=== PATIENT | male | born 1970 | race Caucasian/White ===

== ENCOUNTER 2017-06-01 03:27 | Emergency (ER) | payer OTHER ==
[~2017-06-01] VITALS: Ht 160 cm; Wt 73.6 kg
[2017-06-01 03:34] VITALS: Ht 160 cm; Wt 73.6 kg
[2017-06-01] MEDS ORDERED: LORAZEPAM 2 MG INJ IV STA (03:41)
[2017-06-01] MEDS ORDERED: SOD CHLORIDE 0.9% 1,000 ML IV STA (03:41)
[2017-06-01 04:30] LABS: BASOPHIL # 0.1 10^3/ul (0.0-0.1); BASOPHILS % 0.8 % (0.0-2.0); EOSINOPHILS % 0.1 % (0.0-7.0); HEMATOCRIT 43.9 % (42.0-52.0); HEMOGLOBIN 15.1 g/dl (14.0-18.0); LYMPHOCYTES # 1.7 10^3/ul (0.8-2.9); MEAN CORPUSCULAR HEMOGLOBIN 30.3 pg (29.0-33.0); MEAN CORPUSCULAR HGB CONC 34.4 g/dl (32.0-37.0); MEAN CORPUSCULAR VOLUME 88.2 fl (82.0-101.0); MEAN PLATELET VOLUME 8.8 fl (7.4-10.4); MONOCYTE # 0.5 10^3/ul (0.3-0.9); MONOCYTES % 4.6 % (0.0-11.0); NEUTROPHIL # 8.9 10^3/ul (1.6-7.5); NEUTROPHILS % 78.2 % (39.0-77.0); PLATELET COUNT 310 10^3/UL (140-415); RED BLOOD COUNT 4.98 10^6/ul (4.70-6.10); WHITE BLOOD COUNT 11.4 10^3/ul (4.8-10.8)
--- NOTE | 2017-06-01 04:43 | RADRPT ---
PROCEDURE: CHEST - 1 VIEW CLINICAL INDICATION: 46-year-old male with chest pain. TECHNIQUE: A single frontal AP supine portable view of the chest was performed. The images were r eviewed on a PACS workstation. COMPARISON: None. FINDINGS: There is a shallow inspiration accentuating the heart size. Accounting for this, the cardiomediastin al silhouette is within normal limits. There is mild bibasilar subsegmental atelectasis. There is n o evidence for an infiltrate. There is no evidence for congestive heart failure. There is no eviden ce for pneumothorax. The osseous structures are intact. IMPRESSION: Shallow inspiration with mild bibasilar system atelectasis. .David Saavedra MD, MD Date Time Electronically viewed and signed by .David Saavedra MD, on 06/01/2017 04:43 .M/
[2017-06-01 04:48] LABS: CALCIUM 9.1 mg/dl (8.4-10.2); CREATININE 0.84 mg/dl (0.61-1.24); POTASSIUM 3.9 mmol/L (3.5-5.1)
[2017-06-01 04:59] LABS: TROPONIN-I 0.036 ng/ml (0.00-0.12)
--- NOTE | 2017-06-01 05:20 | ERD ---
ER Documentation Chief Complaint Date/Time DATE: 06/01/17 TIME: 05:16 Chief Complaint LUIS MANUEL RA39 c/o dizziness & NV after using crystal meth HPI Is a 46-year-old male here with complaints of dizziness nausea vomiting after using crystal meth. Denies any fevers or chills. Denies any nausea vomiting. Admits to using crystal meth. Denies any chest pain ROS All systems reviewed and are negative except as per history of present illness. Allergies Allergies: Coded Allergies: No Known Allergy (Unverified , 06/01/17) PMhx/Soc Medical and Surgical Hx: pt denies Medical Hx, pt denies Surgical Hx History of Surgery: No Anesthesia Reaction: No Hx Neurological Disorder: No Hx Respiratory Disorders: No Hx Cardiac Disorders: No Hx Psychiatric Problems: No Hx Miscellaneous Medical Probl: No Hx Alcohol Use: Yes Hx Substance Use: Yes Hx Tobacco Use: Yes (SMOKES CIGARETTES SOMETIMES) Smoking Status: Current some day smoker Physical Exam Vitals Vital Signs Date Time Temp Pulse Resp B/P Pulse Ox O2 Delivery O2 Flow Rate FiO2 06/01/17 04:05 98.5 88 22 169/99 98 Room Air 06/01/17 03:34 98.5 97 18 175/97 98 Physical Exam Const: [] Head: Atraumatic Eyes: Normal Conjunctiva ENT: Normal External Ears, Nose and Mouth. Neck: Full range of motion..~ No meningismus. Resp: Clear to auscultation bilaterally Cardio: Regular rate and rhythm, no murmurs Abd: Soft, non tender, non distended. Normal bowel sounds Skin: No petechiae or rashes Back: No midline or flank tenderness Ext: No cyanosis, or edema Neur: Awake and alert Psych: Normal Mood and Affect Result Diagram: 06/01/17 0405 06/01/17 0405 Results 24 hrs Laboratory Tests Test 06/01/17 04:05 White Blood Count 11.410^3/ul Red Blood Count 4.9810^6/ul Hemoglobin 15.1g/dl Hematocrit 43.9% Mean Corpuscular Volume 88.2fl Mean Corpuscular Hemoglobin 30.3pg Mean Corpuscular Hemoglobin Concent 34.4g/dl Red Cell Distribution Width 13.0% Platelet Count 33088^3/UL Mean Platelet Volume 8.8fl Neutrophils % 78.2% Lymphocytes % 15.0% Monocytes % 4.6% Eosinophils % 0.1% Basophils % 0.8% Nucleated Red Blood Cells % 0.0/100WBC Neutrophils # 8.910^3/ul Lymphocytes # 1.710^3/ul Monocytes # 0.510^3/ul Eosinophils # 0.010^3/ul Basophils # 0.110^3/ul Nucleated Red Blood Cells # 0.010^3/ul Sodium Level 142mmol/L Potassium Level 3.9mmol/L Chloride Level 105mmol/L Carbon Dioxide Level 21mmol/L Anion Gap 20 Blood Urea Nitrogen 10mg/dl Creatinine 0.84mg/dl Glucose Level 143mg/dl Calcium Level 9.1mg/dl Troponin I Pending Current Medications Medications (Trade) Dose Ordered Sig/Farhan Route PRN Reason Start Time Stop Time Status Last Admin Dose Admin Sodium Chloride (NS) 1,000 ml @ 1,000 mls/hr Q1H STAT IV 06/01/17 03:41 06/01/17 04:40 DC 06/01/17 04:28 Lorazepam (Ativan) 2 mg ONCE STAT IV 06/01/17 03:41 06/01/17 03:59 DC Procedures/MDM 1Thiadriana is a 46-year-old male who comes in with dizziness after using crystal meth use. He was advised to stop using crystal meth . Patient's thoracic symptoms have stabilized while in the department and are stable for outpatient follow up. Exam and work up not consistent w/ ischemia, arrhythmia, PE or dissection. EKG: Rate/Rhythm: [Normal Sinus Rhythm] QRS, ST, T-waves: [No changes consistent w/ acute ischemia] Impression: [No evidence of ischemia or arrhythmia] Chest X-ray 1V Interpreted by me: Soft Tissue: No acute abnormalities Bones: No acute abnormalities Mediastinum/Cardiac Silhouette/Lungs: [No acute abnormalities] Departure Diagnosis: Primary Impression: Dizziness Condition: Stable ANSLEY PENG Jun 01, 2017 05:20
[2017-06-01 06:02] VITALS: BP 164/95; PULSE 109; RESP 17; TEMP 98.5
== END 2017-06-01 06:12 | disposition home or self-care (01) ==
LOC: E/R 03:27
DX: R42 Dizziness and giddiness (principal); R11.2 Nausea with vomiting, unspecified; F17.210 Nicotine dependence, cigarettes, uncomplicated
CPT/HCPCS: 36415; 71010; 80048; 84484; 85025; 93005; J7030; Z7502

== ENCOUNTER 2017-06-10 18:30 | Emergency (ER) | payer OTHER ==
[~2017-06-10] VITALS: Ht 170.2 cm; Wt 79.5 kg
[2017-06-10 18:49] VITALS: Ht 170.2 cm; Wt 79.5 kg
--- NOTE | 2017-06-10 19:35 | ERD ---
ER Documentation Chief Complaint Date/Time DATE: 06/10/17 TIME: 19:33 Chief Complaint Pt seen thursday for s/s of dizziness denies vomiting at this time HPI This 46-year-old male patient presents to emergency department today with complaint of subjective vertigo x 10 days symptoms better today than yesterday. pt has been seen bu PMD dx with vertigo on meclizine. pt reports intermitted relief of symptoms. pt denies CP, SOB, reports palpation and dizziness ROS All systems reviewed and are negative except as per history of present illness. Allergies Allergies: Coded Allergies: No Known Allergy (Unverified , 06/01/17) PMhx/Soc History of Surgery: No Anesthesia Reaction: No Hx Neurological Disorder: No Hx Respiratory Disorders: No Hx Cardiac Disorders: No Hx Psychiatric Problems: No Hx Miscellaneous Medical Probl: No Hx Alcohol Use: Yes Hx Substance Use: Yes Hx Tobacco Use: Yes (SMOKES CIGARETTES SOMETIMES) Physical Exam Vitals Vital Signs Date Time Temp Pulse Resp B/P Pulse Ox O2 Delivery O2 Flow Rate FiO2 06/10/17 18:49 99.0 71 16 183/93 98 Vitals stable, triage notes reviewed Physical Exam Const: Well-nourished, well-appearing, well-hydrated 46-year-old male patient no acute distress Head: Atraumatic Eyes: Normal Conjunctiva, PERRLA, EOMI ENT: Tympanic membrane translucent, no air-fluid level, positive light reflex , no mastoid tenderness, nasal mucosa moist, turbinates +1, pharynx pink, uvula midline rancid falls with pronation, no shift Neck: Full range of motion..~ No meningismus. Resp: Clear to auscultation bilaterally, no rales wheezes or rhonchi Cardio: S1-S2, no S3-S4 regular rate and rhythm, no murmurs Abd: Skin: Back: Ext: Neur: Awake and alert Psych: Normal Mood and Affect Result Diagram: 06/10/17199906/10/171999 Results 24 hrs Laboratory Tests Test 06/10/17 20:00 White Blood Count 9.510^3/ul Red Blood Count 5.1110^6/ul Hemoglobin 15.5g/dl Hematocrit 45.3% Mean Corpuscular Volume 88.6fl Mean Corpuscular Hemoglobin 30.3pg Mean Corpuscular Hemoglobin Concent 34.2g/dl Red Cell Distribution Width 11.9% Platelet Count 13561^3/UL Mean Platelet Volume 8.8fl Neutrophils % 58.1% Lymphocytes % 31.6% Monocytes % 7.2% Eosinophils % 2.0% Basophils % 0.9% Nucleated Red Blood Cells % 0.0/100WBC Neutrophils # 5.510^3/ul Lymphocytes # 3.010^3/ul Monocytes # 0.710^3/ul Eosinophils # 0.210^3/ul Basophils # 0.110^3/ul Nucleated Red Blood Cells # 0.010^3/ul Sodium Level 141mmol/L Potassium Level 4.0mmol/L Chloride Level 106mmol/L Carbon Dioxide Level 26mmol/L Anion Gap 13 Blood Urea Nitrogen 12mg/dl Creatinine 1.05mg/dl Glucose Level 108mg/dl Calcium Level 9.2mg/dl Total Bilirubin 0.0mg/dl Direct Bilirubin 0.00mg/dl Indirect Bilirubin 0.0mg/dl Aspartate Amino Transf (AST/SGOT) 55IU/L Alanine Aminotransferase (ALT/SGPT) 106IU/L Alkaline Phosphatase 116IU/L Troponin I 0.013ng/ml B-Type Natriuretic Peptide 19PG/ML Total Protein 7.9g/dl Albumin 4.4g/dl Globulin 3.50g/dl Albumin/Globulin Ratio 1.25 Current Medications Medications (Trade) Dose Ordered Sig/Farhan Route PRN Reason Start Time Stop Time Status Last Admin Dose Admin Promethazine HCl (Phenergan) 25 mg ONCE ONCE PO 06/10/17 20:00 06/10/17 20:01 DC 06/10/17 20:44 Interpretation text CBC shows no evidence of hemorrhage or infection Chemistry shows no evidence of significant electrolyte abnormalities or renal insufficiency Liver function tests shows no evidence of acute biliary or hepatic dysfunction Cardiac biomarkers show no evidence of acute myocardial injury or coronary ischemia BNP shows no evidence of acute congestive heart failure, and or volume overload. Procedures/MDM EKG: Interpretation by supervising physician Dr. Cox Rate/Rhythm: Normal Sinus Rhythm ventricular rate of 73 bpm QRS, ST, T-waves: No changes consistent w/ acute ischemia Impression: No evidence of ischemia or arrhythmia This 46-year-old male patient presents to emergency department for evaluation of vertigo symptoms. Patient actually was seen and treated by his primary care physician and has been on meclizine. Patient reports symptoms worse yesterday, today. Patient reports that symptoms are exacerbated with position changes. Patient reports that it feels as if he is spinning at times he has an off balance feeling denies headache, nausea, vomiting, sweating, vision changes, blurred vision or vision loss. Patient denies any change in hearing or tinnitus denies numbness or tingling to extremities. Patient has no history of diabetes denies street drugs, alcohol. ECG normal sinus rhythm, emergency room evaluation includes diagnostic testing cardiac biomarkers without evidence of acute coronary syndromes, and Phenergan 25 mg with improvement of symptoms plan to discharge patient home on Phenergan. Instructed to follow-up with his primary care physician for referral to specialist. Return to emergency department for chest pain, shortness of breath, palpitations. Patient is stable with no new complaints during ER course, clinically there is no current evidence to suggest Mnire's disease, malignant otitis externa, cardiac arrhythmia, acute coronary syndromes or any other emergent condition appearing to require further evaluation or hospitalization. I feel the patient is stable for discharge at this time. I have discussed results, examination findings, the treatment plan with the patient and family present prior to discharge. Indications for emergent reevaluation, side effects of medication were also discussed. All questions were answered. Patient verbalizes understanding and agrees with plan of care. Departure Diagnosis: Primary Impression: Dizziness Patient Instructions: Benign Positional Vertigo, Dizziness (Vertigo) and Balance Problems: Ensuring Your Safety Additional Instructions: Thank you for for coming to [facility] for your care today. Please ask your nurse or provider if you have questions about your care today and do not leave until all your questions have been answered. Please use any medications given as directed and follow-up with your doctor (or the doctor you were referred to) in the next 2-3 days. If you do not have a primary care doctor you may follow up at the [facility] (listed below). You may also use motrin and tylenol as needed for fever and/or pain unless instructed otherwise by your provider or nurse. Indications for more urgent follow-up have been discussed, but you may return to the Emergency Department at ANY time for any worrisome or worsening symptoms. If you have abdominal pain, please know that no test or exam you received is perfect and you should follow up within 8 hours for continued pain. If you had any imaging studies today, such as an X-Ray or CT Scan, these studies will be reviewed later by a radiologist. You will be called if there are important findings that were not identified today, so make sure the contact information you provided at registration is correct. If you received any narcotic pain control medicine today, such as Vicodin, Morphine or Dilaudid, your coordination and judgment may be affected for a number of hours. Please do not drive or operate heavy machinery, and you may want someone to assist you at home. If you were given a prescription for narcotic medication, be aware that it is very addictive- use sparingly and only if necessary. RODERICK QUINN Jun 10, 2017 19:35
[2017-06-10] MEDS ORDERED: PROMETHAZINE 25 MG TAB PO ONE (20:00)
[2017-06-10 21:09] LABS: BASOPHIL # 0.1 10^3/ul (0.0-0.1); BASOPHILS % 0.9 % (0.0-2.0); EOSINOPHILS # 0.2 10^3/ul (0.0-0.5); HEMATOCRIT 45.3 % (42.0-52.0); HEMOGLOBIN 15.5 g/dl (14.0-18.0); LYMPHOCYTES % 31.6 % (15.0-51.0); MEAN CORPUSCULAR HEMOGLOBIN 30.3 pg (29.0-33.0); MEAN CORPUSCULAR HGB CONC 34.2 g/dl (32.0-37.0); MEAN CORPUSCULAR VOLUME 88.6 fl (82.0-101.0); MEAN PLATELET VOLUME 8.8 fl (7.4-10.4); MONOCYTE # 0.7 10^3/ul (0.3-0.9); MONOCYTES % 7.2 % (0.0-11.0); NEUTROPHIL # 5.5 10^3/ul (1.6-7.5); NEUTROPHILS % 58.1 % (39.0-77.0); PLATELET COUNT 315 10^3/UL (140-415); RED BLOOD COUNT 5.11 10^6/ul (4.70-6.10); RED CELL DISTRIBUTION WIDTH 11.9 % (11.5-14.5); WHITE BLOOD COUNT 9.5 10^3/ul (4.8-10.8)
[2017-06-10 21:26] LABS: ALBUMIN 4.4 g/dl (3.3-4.9); ALBUMIN/GLOBULIN RATIO 1.25; CALCIUM 9.2 mg/dl (8.4-10.2); CREATININE 1.05 mg/dl (0.61-1.24); TOTAL PROTEIN 7.9 g/dl (6.1-8.1)
[2017-06-10 21:38] LABS: TROPONIN-I 0.013 ng/ml (0.00-0.12)
[2017-06-10] MEDS ORDERED: PROM25TA14 PO (22:43)
[2017-06-10 23:16] VITALS: BP 172/80; PULSE 75; RESP 18; TEMP 98.3
== END 2017-06-10 23:17 | disposition home or self-care (01) ==
LOC: FTE 18:30
DX: R42 Dizziness and giddiness (principal); F17.210 Nicotine dependence, cigarettes, uncomplicated
CPT/HCPCS: 36415; 80053; 83880; 84484; 85025; 93005; Z7502; Z7610

== ENCOUNTER 2017-06-16 10:19 | Emergency (ER) | payer OTHER ==
[~2017-06-16] VITALS: Ht 160 cm; Wt 89.0 kg
[~2017-06-16 10:19] MED LIST: PROM25TA14 PO
[2017-06-16 10:22] VITALS: Ht 160 cm; Wt 89.0 kg
[2017-06-16] MEDS ORDERED: MECLIZINE 12.5 MG TAB PO ONE (11:30)
--- NOTE | 2017-06-16 12:55 | RADRPT ---
PROCEDURE: CT Brain without contrast. CLINICAL INDICATION: Dizziness and vertigo TECHNIQUE: CT scan of the brain was performed on a multidetector high-resolution CT scan. Axial im aging was obtained of the brain without contrast administration. Coronal and sagittal reformatted i mages were obtained from the axial source images. Standard CT scan of the head without contrast prot ocols were performed. The total exam CTDI equals 44.9 mGy and the total exam DLP equals 630.2 mGy-cm. One or more of the following dose reduction techniques were used: - Automated exposure control. - Adjustment of the mA and/or kV according to patient size. Use of iterative reconstruction technique. COMPARISON: None. FINDINGS: The ventricular system and peripheral CSF spaces are unremarkable. Negative for intracranial masses hemorrhages or midline shift. Silva-white matter junction is unremarkable. The bones of the calvarium are intact. The visualized paranasal sinuses and mastoids are unremarkable. IMPRESSION: No evidence of intracranial masses hemorrhages or midline shift. RPTAT:AAJJ Physician Radha Date Time Electronically viewed and signed by Physician Radha on 06/16/2017 12:55 BM/
--- NOTE | 2017-06-16 13:01 | RADRPT ---
PROCEDURE: CT Petrous Bone without Contrast CLINICAL INDICATION: Vertigo TECHNIQUE: The transaxial images were made through the petrous bones bilaterally although multi-sli ce scanner. Sagittal coronal re-formations were subsequently obtained. No intravenous contrast was administered. COMPARISON: None One or more of the following dose reduction techniques were used: - Automated exposure control. - Adjustment of the mA and/or kV according to patient size. - Use of iterative reconstruction technique. Radiation: The CTDIvol is 44.90 mGy and the DLP is 630.20 mGycm. FINDINGS: The external auditory canals appear unremarkable. Each scutum is sharply marginated intact. The mastoid air cells are well-aerated and there is no osseous destruction identified. The middle ear cavities are well-aerated and the middle ear ossicles appear unremarkable. The tegme n appears intact. The cochleas and semicircular canals appear unremarkable bilaterally. Each internal auditory canal appears unremarkable with no expansion, erosion, or mass identified. The visualized brain parenchyma appears unremarkable. No cerebellar pontine angle mass is identified . Mild mucoperiosteal thickening is seen within the maxillary sinuses. IMPRESSION: 1. Mild mucoperiosteal thickening involving the maxillary sinuses. 2. Unremarkable CT of the petrous bone. Physician Ani Date Time Electronically viewed and signed by Physician Ani on 06/16/2017 13:01 /
[2017-06-16] MEDS ORDERED: PRED20TA PO (13:04)
[2017-06-16] MEDS ORDERED: MECL-77 PO (13:04)
[2017-06-16] MEDS ORDERED: AZIT250T94 PO (13:04)
[2017-06-16 13:19] VITALS: BP 132/78; PULSE 72; RESP 19; TEMP 98.1
--- NOTE | 2017-06-17 18:15 | ERD ---
ER Documentation Chief Complaint Date/Time DATE: 06/17/17 TIME: 18:13 Chief Complaint HAS VERTIGO X 17 DAYS, ON MEDS HPI This 46-year-old male presents with reproducible dizziness or vertigo for the last 2.5 weeks. He is taken promethazine and had minimal relief. Denies any history of trauma, weakness, vomiting, visual changes. Dizziness is reproducible by lying on his left side. ROS All systems reviewed and are negative except as per history of present illness. Medications Home Meds Active Scripts Azithromycin* (Zithromax*) 250 Mg Tablet, 250 MG PO .ZPACK DIRECTED, #6 TAB TAKE 500 MG (2 TABS) THE FIRST DAY THEN 250 MG (1 TAB) DAYS 2-5 Prov:ALIDA ALDANA MD 06/16/17 Prednisone* (Prednisone*) 20 Mg Tab, 40 MG PO DAILY for 5 Days, TAB Prov:ALIDA ALDANA MD 06/16/17 Meclizine Hcl* (Meclizine Hcl*) 25 Mg Tablet, 25 MG PO Q8H Y for DIZZINESS, #20 TAB Prov:ALIDA ALDANA MD 06/16/17 Promethazine Hcl* (Phenergan*) 25 Mg Tablet, 25 MG PO BID Y for NAUSEA AND/OR VOMITING, #10 TAB Prov:RODERICK QUINN 06/10/17 Allergies Allergies: Coded Allergies: No Known Allergy (Unverified , 06/16/17) PMhx/Soc Medical and Surgical Hx: pt denies Surgical Hx History of Surgery: No Anesthesia Reaction: No Hx Neurological Disorder: No Hx Respiratory Disorders: No Hx Cardiac Disorders: No Hx Psychiatric Problems: No Hx Miscellaneous Medical Probl: Yes (vertigo) Hx Alcohol Use: Yes Hx Substance Use: Yes Hx Tobacco Use: Yes (SMOKES CIGARETTES SOMETIMES) Smoking Status: Current some day smoker Physical Exam Vitals Vital Signs Date Time Temp Pulse Resp B/P Pulse Ox O2 Delivery O2 Flow Rate FiO2 06/16/17 13:19 98.1 72 19 132/78 Room Air 06/16/17 10:22 98.1 80 18 158/90 99 Physical Exam Const: [], [id number]. Head: Atraumatic Eyes: Normal Conjunctiva ENT: Normal External Ears, Nose and Mouth. TMs with decreased light reflex and clear to yellow fluid bilaterally. Neck: Full range of motion..~ No meningismus. Resp: Clear to auscultation bilaterally Cardio: Regular rate and rhythm, no murmurs Abd: Soft, non tender, non distended. Normal bowel sounds Skin: No petechiae or rashes Back: No midline or flank tenderness Ext: No cyanosis, or edema Neur: Awake and alert with normal gait. Positive reproducible vertigo to the left. No cerebellar signs. Psych: Normal Mood and Affect Results 24 hrs Current Medications Medications (Trade) Dose Ordered Sig/Farhan Route PRN Reason Start Time Stop Time Status Last Admin Dose Admin Meclizine HCl (Antivert) 25 mg ONCE ONCE PO 06/16/17 11:30 06/16/17 11:31 DC 06/16/17 11:31 Procedures/MDM Given the duration of symptoms CT brain was performed which was read as normal by the radiologist. Patient presents with reproducible signs of peripheral vertigO without signs central lesion, neurologic deficit, meningitis.. Decreased light reflex suggesting possible serous otitis media. We treated with a short course of prednisone, Antivert and Zithromax. Patient is advised to follow-up with primary doctor and ENT for persistent symptoms. The patient was stable with no new complaints during the ER course. Clinically, there is no current evidence to suggest meningitis, sepsis, acute abdomen, pneumonia, acute coronary syndrome, pulmonary embolism, or any other emergent condition appearing to require further evaluation or hospitalization. The patient should certainly return for any new or worsening symptoms per the aftercare instructions. They should otherwise follow-up with her primary care doctor for reevaluation this week. Departure Diagnosis: Primary Impression: Vertigo Condition: Stable Patient Instructions: Vertigo, Unspecified Referrals: JAY HERNÁNDEZ MD, MARTIN Additional Instructions: CT scan normal. Recheck with primary doctor or ENT specialist for further evaluation and treatment. ALIDA ALDANA MD Jun 17, 2017 18:15
== END 2017-06-16 13:20 | disposition home or self-care (01) ==
LOC: FTE 10:19
DX: R42 Dizziness and giddiness (principal); F17.210 Nicotine dependence, cigarettes, uncomplicated
CPT/HCPCS: 70450; 70480; Z7502; Z7610

== ENCOUNTER 2017-09-19 20:31 | Emergency (ER) | END 2017-09-19 22:17 | disposition home or self-care (01) ==

== ENCOUNTER 2017-09-23 01:29 | Emergency (ER) | END 2017-09-23 05:38 | disposition left against medical advice (07) ==

== ENCOUNTER 2018-04-30 04:39 | Emergency (ER) | END 2018-04-30 06:05 | disposition home or self-care (01) ==